=== PATIENT | male | born 1985 | race Caucasian/White ===

== ENCOUNTER 2024-11-20 07:40 | Emergency (ER) | payer OTHER, SELFPAY ==
[2024-11-20 07:44] VITALS: BP 144/104
[2024-11-20 09:24] VITALS: BMI 32.2
[2024-11-20] MEDS: TORADOL 15 MG IV (09:54)
[2024-11-20] MEDS: DECADRON 10 MG IV (09:54)
[2024-11-20] MEDS: VALIUM INJECTION 2 MG IV (09:58)
--- NOTE | 2024-11-20 10:18 | ED.GENMED ---
History of Present Illness
General
Chief Complaint: Back Pain
Source: patient and family
Exam Limitations: none
Time Seen by Provider: 11/20/24 08:10
Nursing documentation reviewed up to this point in time: agreed with
History of Present Illness
History of Present Illness:
39-year-old male presenting to the emergency department today with concerns of back and stomach discomfort progressive over the past 6 days or so now symptoms going into the right leg. Does have some degree of chronic back pain which is never been
significantly assessed. Usually just deals with the baseline.
Review of Systems
Review of Systems
Allergies reviewed?: Yes
All Other Systems: ROS reviewed and negative except as documented in HPI and ROS
Phy Exam
Physical Exam
Physical Exam:
GENERAL: Alert , in no apparent distress
EYE: pupils equal and reactive
NECK: Supple, no significant adenopathy.
ENT: o/p clr, mmm.
CARDIAC: Regular rate and rhythm .
LUNGS: Clear breath sounds bilaterally, no acute respiratory distress, no wheezes/rales/rhonchi
ABDOMEN: Mildly reproducible pain to the right lower quadrant otherwise no pain to the flank able to move lower extremities without difficulty.
NEUROLOGICAL: Alert and oriented, no focal neuro deficits
SKIN: Warm and dry, skin intact.
MUSCULOSKELETAL: No edema, well perfused.
PSYCH: Normal and appropriate interaction.
Course
Orders/Labs/Results
Orders:
Orders
11/20/24 09:00
Dexamethasone Sod Phosphate [Decadron] 10 mg IV NOW STA
Ketorolac [Toradol] 15 mg IV NOW STA
diazePAM [Valium Injection] 2 mg IV NOW STA
11/20/24 09:01
CT Abd/Pel (IV only)-DH only Urgent
Comment:
Reason For Exam: lower abd pain, also right flank pain
11/20/24 09:52
Complete Blood Count/With Diff Urgent
Comprehensive Metabolic Panel Urgent
Lipase Urgent
11/20/24 09:57
Urinalysis Reflex To Culture Urgent
Date Specimen was Collected: 11/20/24
Time Specimen was Collected: 09:53
11/20/24 13:01
Oxycodone/Acetaminophen [Percocet 5/325] 2 tablet PO NOW STA
Abnormal Lab Results
11/20/24
09:52
MCHC 32.9 L g/dL
(33.0-37.0)
MPV 12.1 H fL
(7.4-10.4)
Monocytes % 9.6 H %
(1.7-9.3)
Chloride 109 H mmol/L
(98-107)
11/20/24 09:52
11/20/24 09:52
Vital Signs
Initial and Last Documented VS:
Initial Vital Signs
Temp Pulse Resp Pulse Ox
98.5 F 85 18 95
11/20/24 07:41 11/20/24 07:41 11/20/24 07:41 11/20/24 07:41
Last Documented Vital Signs
Temp Pulse Resp BP Pulse Ox
98.5 F 85 18 144/104 95
11/20/24 07:41 11/20/24 07:41 11/20/24 07:41 11/20/24 07:44 11/20/24 10:20
MDM/Problems Addressed
MDM/Problems Addressed:
39-year-old male presenting to the emergency department today with concerns of back and stomach discomfort over the past 6 days rating down the right leg. On arrival vital signs are normal patient no distress patient does have some reproducible
pain to the right flank and lower abdominal region. CT scan was ordered for further assessment. CT scan showing potential hernia. Here he had no specific pain to the area but has noticed intermittent bulging in that area. Symptoms do not
correlate with his acute symptoms that brought him to the ER. He was advised to follow-up closely with the general surgeon as an outpatient. Otherwise labs unremarkable patient no distress throughout ER stay pain improvement with medications plan
for close outpatient follow-up. Return precautions given.
*Pulse Oximetry
SaO2: 95
Patient hypoxic: no (95)
*Critical Care Note
Total Time (30-74mins, 75-104mins- exclusive of procedures): Not Applicable
ED Attending Note
-
Portions of this chart may have been created with voice recognition software.� Occasional wrong word or��sound alike� substitutions may have occurred due to the inherent limitations of voice recognition software.
Discharge Plan
Departure
Patient Disposition: Home (Routine Discharge)
Date of Disposition: 11/20/24
Time of Disposition: 14:09
Patient with high blood pressure during this ER visit?: No
Condition: Good
Covid-19: Not Applicable
Discharge Problem:
Back pain
Instructions: Low Back Pain (DC)
Prescriptions:
New
tizanidine [Zanaflex] 4 mg capsule
4 mg PO BID PRN (Reason: muscle spasticity) Qty: 7 0RF
meloxicam 15 mg tablet
15 mg PO DAILY 7 Days Qty: 7 0RF
methylprednisolone [Medrol (Rolando)] 4 mg tablets,dose pack
See Rx Instructions .ROUTE .COMPLEX Qty: 21 0RF
Rx Instructions:
for 6 days
Referrals:
Lyle Stapleton MD [Active, Anesthesiology] - Follow up in 5-7 days
Phoenix Noel MD [Active, Surgical]
NONE,* [Family Provider, Internal Medicine]
Activity Restrictions/Additional Instructions:
You came to the emergency department today with concerns of low back pain. Here had a reassuring assessment. Please follow closely with the general surgeon and the pain management doctor. Return for any worsening, new or concerning symptoms.
Interventions
Interventions:
*Risk Screen - Suicide Last Done: 11/20/24 07:43
Discharge Date and Time
Print Language: SAMMARINESE
[2024-11-20 10:22] LABS: Hematocrit 44.1 % (39.0-52.0); Hemoglobin 14.5 g/dL (13.0-18.0); Mean Corp Hgb Conc. 32.9 g/dL (33.0-37.0); Mean Corpuscular Volume 84.8 fL (80.0-94.0); Nucleated Red Blood Cells % 0 % (-); Platelet Count 160 10^3/uL (130-400); Red Cell Dist. Width 12.4 % (11.5-14.5)
[2024-11-20 10:30] LABS: ALT (SGPT) 22 U/L (0-50); AST (SGOT) 20 U/L (17-59); Albumin 3.7 g/dl (3.5-5.0); Alkaline Phosphatase 63 U/L (38-126); Blood Urea Nitrogen 14 mg/dl (9-20); Calcium 9.0 mg/dl (8.4-10.2); Carbon Dioxide 26 mmol/L (22-30); Chloride 109 mmol/L (98-107); Estimated Creatinine Clearance > 125 ml/min; Glucose 90 mg/dl (70-99); Lipase 90 U/L (23-300); Potassium 4.3 mmol/L (3.5-5.1); Sodium 139 mmol/L (135-145); Total Protein 6.8 g/dl (6.3-8.2); eGFR > 60.00
[2024-11-20 10:45] LABS: Urine Character Clear (Clear)
[2024-11-20] MEDS: PERCOCET 5/325 2 TABLET PO (13:15)
[2024-11-20 14:27] VITALS: BP 134/87
== END 2024-11-20 15:06 | disposition home or self-care (01) ==
LOC: EMR 07:40
PROVIDERS: Physician Assistant; EMERGENCY PHYSICIAN Student in an Organized Health Care Education/Training Program
DX: G89.29 Other chronic pain (principal); M54.9 Dorsalgia, unspecified
CPT/HCPCS: 99284; 96374; 96375; 74177; 80053; 81003; 83690; 85025; Q9967